=== PATIENT | female | born 1955 | race African-American/Black ===

== ENCOUNTER 2022-03-22 22:57 | Emergency (ER) | payer OTHER, MEDICAID ==
[~2022-03-22] VITALS: Ht 162.6 cm; Wt 65.8 kg
--- NOTE | 2022-03-22 22:57 | NUR ---
PROVIDER AT [facility] TO ASSESS PT. UPDATED EMS ON PLAN FOR DC. PT WAS MEDICATED AT [facility] PRIOR TO COMING FOR PSYCHOSIS EPISODE. PT HAS BEEN TO BASELINE PRIOR TO TRANSPORT TO HOSPITAL. PROVIDER WILL SEND PT BACK TO [facility].
[2022-03-22 23:10] VITALS: BP_SYST 92
[2022-03-23 01:37] VITALS: BP_SYST 92
--- NOTE | 2022-03-23 01:37 | NUR ---
DC INSTRUCTIONS GIVEN TO EMS. PT NEVER WAS IN BED. PT REMAINED ON EMS GURARABI FOR DISCHARGE. REPORT TO MICHELLE AT [facility]. PT ALERT AND APPROPRIATE AT THIS TIME. NO S/S OF DISTRESS NOTED.
== END 2022-03-23 01:37 | disposition home or self-care (01) ==
LOC: SED 22:57
DX: R45.6 Violent behavior (principal); F03.91 Unspecified dementia, unspecified severity, with behavioral disturbance; Z79.899 Other long term (current) drug therapy
CPT/HCPCS: 99283